=== PATIENT | female | born 1975 | race Caucasian/White ===

== ENCOUNTER → 2019-11-22 | Outpatient (CLI) | payer OTHER ==
--- NOTE | 2019-11-24 14:29 | TST ---
[place] [address] TREADMILL STRESS TEST Name: SUGEY WHEELER Room: [facility]#: [id number] Admission: 11/22/19 Attend Phys: Madhuri Lewis Discharge: Date of : 79 Date of Service: 11/22/19 1533 Report #: [id number] THIS REPORT FOR: cc: Duong Orlando MD, Tuongvan T. MD Liston, Michael J. MD [facility] ~ CC: Madhuri Orlando DATE OF SERVICE: 11/22/2019 PROCEDURE: Standard Jean-Paul protocol exercise stress test. INDICATION: Chest pain, dyspnea, palpitations. CARDIAC HISTORY: None. CARDIAC RISK FACTORS: Hypertension and tobacco use. CARDIAC MEDICATIONS: Lisinopril. The patient exercised per standard Jean-Paul protocol for a total of 9 minutes 31 seconds. The patient achieved 93% of the age predicted maximum heart rate and an energy expenditure equivalent to 11.02 METS. The resting blood pressure was 112/87 mmHg with resting heart rate of 91 beats per minute. At peak exercise, the blood pressure was 184/86 mmHg with a peak heart rate of 167 beats per minute. Recovery blood pressure was 139/90 with a recovery heart rate of 96 beats per minute. Exercise was terminated due to achievement of target heart rate. The patient had no significant cardiac symptoms with exercise. The baseline 12-lead EKG shows sinus rhythm without significant ST segment or T-wave abnormality. EKGs obtained during and post-exercise stress shows sinus rhythm and sinus tachycardia with no significant ST segment or T-wave changes when compared to baseline. There were no stress-induced arrhythmias. IMPRESSION: 1. Clinical response, nonischemic. 2. EKG response, nonischemic. CONCLUSION: This standard Jean-Paul protocol exercise stress [place] [address] [employer]MI[employer] STRESS TEST Name: SUGEY WHEELER Room: [facility]#: [id number] Admission: 11/22/19 Attend Phys: Madhuri Lewis Discharge: Date of : 79 Date of Service: 11/22/19 1533 Report #: [id number] to suggest stress-induced ischemia. The patient exhibited good exercise tolerance. This is a low-risk study. <ELECTRONICALLY SIGNED> By: Alberto Amaya MD, FACC 11/24/19 1429 1533 2106 Alberto Amaya MD, FACC /nt
--- NOTE | 2019-11-25 17:28 | 24HR ---
[place] [address] HOLTER MONITOR REPORT Name: SUGEY WHEELER Room: [facility]#: [id number] Admission: 11/22/19 Attend Phys: Madhuri Lewis Discharge: Date of : 79 Date of Service: 11/25/19 1150 Report #: [id number] THIS REPORT FOR: cc: Duong Orlando MD, Tuongvan T. MD Blick, David R. MD [facility] ~ [facility] Test Date: 2019-11-25 Test Time: 11:50:40 Pat Name: SUGEY WHEELER Department: Room: Gender: F [employer] Head: : 1975 Requested By: Madhuri Lewis Order Number: [id number] Anshul MD: Mike Sibley Interpretive Statements 1. sinus rhythm with sinus tachycardia and bradycardia 2. rare pvc's and couplet 3. occassional pac's and 7 beat run of pat 4. no diary submitted Electronically Signed On 11-25-2019 17:28:05 CDT by Mike Sibley [email or web address] <ELECTRONICALLY SIGNED> By: Mike Sibley MD, FAC 11/25/19 1728 1150 1150 Mike Sibley MD, [facility] /EPI
== END ==
LOC: M.CRD 10:44
PROVIDERS: ATTEND Nurse Practitioner Family
DX: R07.9 Chest pain, unspecified (principal); R00.0 Tachycardia, unspecified; R06.00 Dyspnea, unspecified; I10 Essential (primary) hypertension